=== PATIENT | male | born 1990 | race American Indian/Alaskan Native ===

== ENCOUNTER 2018-06-17 04:58 | Emergency (ER) | payer BC ==
[2018-06-17 05:14] VITALS: BP 146/96
--- NOTE | 2018-06-17 05:39 | XRay Report ---
PROCEDURE: XR CHEST 1V AP TECHNIQUE: A single AP view the chest was obtained. HISTORY: Chest Pain COMPARISONS: None FINDINGS: The lungs are clear. Heart size is normal. Pleural fluid is not seen. The bones and soft tissues appe ar normal. IMPRESSION: Within normal limits.. This document is electronically signed by Quique Ledezma MD., June 17 2018 05:37:34 AM ET
--- NOTE | 2018-06-17 08:32 | Emergency Department Report ---
ED Abdominal Pain HPI - General Chief Complaint: Chest Pain Stated Complaint: CHEST PAIN Time Seen by Provider: 06/17/18 07:53 Source: patient Mode of arrival: Ambulatory Limitations: No Limitations - History of Present Illness Initial Comments: Patient is a 27-year-old healthy looking male who presents to ED complaining of epigastric pain for the past 2 weeks. Patient is also complaining of trunk pain for the past 3 weeks. Patient states that he isn't trying to lose weight so he has decreased appetite and only eats about 1 minute day. Patient states he does stay hydrated. Patient states that he is been using this abdominal pelvic dissection shock waves to the trunk area. Patient states pain clinic, from that. Patient denies any fever, nausea, chest pain, vomiting, diarrhea, constipation, abdominal pain, dysuria, pain or discharge or pelvic pain MD Complaint: abdominal pain Severity scale (0 -10): 8 - Related Data Previous Rx's Medication Instructions Recorded Last Taken Type Azithromycin [Zithromax TAB] 250 mg PO QDAY #5 tablet 05/05/15 Unknown Rx Famotidine [Pepcid] 20 mg PO BID #30 tablet 06/17/18 Unknown Rx Allergies Allergy/AdvReac Type Severity Reaction Status Date / Time No Known Allergies Allergy Verified 06/17/18 05:14 ED Review of Systems ROS: Stated complaint: CHEST PAIN Other details as noted in HPI Comment: All other systems reviewed and negative ED Past Medical Hx - Past Medical History Previous Medical History?: No - Surgical History Past Surgical History?: No - Social History Smoking Status: Current Every Day Smoker Substance Use Type: None - Medications Home Medications: Home Medications Medication Instructions Recorded Confirmed Last Taken Type Azithromycin [Zithromax TAB] 250 mg PO QDAY #5 tablet 05/05/15 Unknown Rx Famotidine [Pepcid] 20 mg PO BID #30 tablet 06/17/18 Unknown Rx ED Physical Exam - General Limitations: No Limitations General appearance: alert, in no apparent distress - Head Head exam: Present: atraumatic, normocephalic - Eye Eye exam: Present: normal appearance - ENT ENT exam: Present: mucous membranes moist - Neck Neck exam: Present: normal inspection - Respiratory Respiratory exam: Present: normal lung sounds bilaterally. Absent: respiratory distress - Cardiovascular Cardiovascular Exam: Present: regular rate, normal rhythm. Absent: systolic murmur, diastolic murmur, rubs, gallop - GI/Abdominal GI/Abdominal exam: Present: soft, normal bowel sounds. Absent: distended, tenderness, organomegaly, mass, pulsatile mass - Rectal Rectal exam: Present: deferred - Extremities Exam Extremities exam: Present: normal inspection - Back Exam Back exam: Present: normal inspection, full ROM. Absent: tenderness, CVA tenderness (R), CVA tenderness (L) - Neurological Exam Neurological exam: Present: alert, oriented X3, normal gait - Psychiatric Psychiatric exam: Present: normal affect, normal mood - Skin Skin exam: Present: warm, dry, intact, normal color. Absent: rash ED Course Vital Signs 06/17/18 06/17/18 05:09 07:41 Temperature 98.0 F Pulse Rate 74 Respiratory 16 18 Rate Blood Pressure 146/96 O2 Sat by Pulse 98 99 Oximetry ED Medical Decision Making - Medical Decision Making 27-year-old male who presents with gastritis/abdominal muscle pain Discussed the patient is not eating because of gastritis. Discussed with him to make sure that he has enough meals 3 times per day. Discussed healthy ways to lose weight. Discussed follow-up with primary care physician. Scars follow up with the it administrative assistant. Discuss patient to stop using abdominal Belt Vital signs are normal patient is in no acute distress. Critical care attestation.: If time is entered above; I have spent that time in minutes in the direct care of this critically ill patient, excluding procedure time. ED Disposition Clinical Impression: Gastritis Disposition: DC-01 TO HOME OR SELFCARE Is pt being admited?: No Does the pt Need Aspirin: No Condition: Stable Instructions: Gastritis (ED), Trigger Point Pain (ED) Additional Instructions: Make sure to follow up with the primary care physician as discussed. Take all your medications as you've been prescribed. If you have any worsening symptoms or develop new symptoms please return to ED immediately. Prescriptions: Famotidine [Pepcid] 20 mg PO BID #30 tablet Referrals: CHASITY KERN MD [Primary Care Provider] - 3-5 Days [facility] [Provider Group] - 3-5 Days [facility] [Provider Group] - 3-5 Days Forms: Work/School Release Form(ED) Time of Disposition: 08:36
== END 2018-06-17 08:48 | disposition home or self-care (01) ==
LOC: ED 04:58
DX: K29.70 Gastritis, unspecified, without bleeding (principal); F17.200 Nicotine dependence, unspecified, uncomplicated
CPT/HCPCS: 71045; 93005; 93010; 99283

== ENCOUNTER 2018-10-18 06:33 | Emergency (ER) | payer BC ==
--- NOTE | 2018-10-18 07:43 | Emergency Department Report ---
ED Male HPI - General Chief complaint: Urogenital-Male Stated complaint: GROIN WORK INJURY Time Seen by Provider: 10/18/18 07:08 Source: patient Mode of arrival: Ambulatory Limitations: No Limitations - History of Present Illness Initial comments: Patient is a 28-year-old male presents emergency room with penile discharge and a possible STD. Patient states he does not have a work-related injury to said that is embarrassed to tell the female staff in triage the real reason. Patient states he is having some mild dysuria at times. Patient denies fever and chills. Patient denies testicular pain. Patient denies any groin pain. Patient denies abdominal pain. Patient denies fever and chills. Patient states he's having a mild cloudy penile discharge.. Patient denies rash. MD Complaint: penile discharge -: Sudden Location: penis Radiation: none Severity: moderate Consistency: constant Improves with: rest Worsens with: urination new sexual partner discharge, dysuria. denies: swelling, mass, rash, urinary retention, blood in urine, fever, nausea/vomiting, incontinence - Related Data Sexually active: Yes Previous Rx's Medication Instructions Recorded Last Taken Type Famotidine [Pepcid] 20 mg PO BID #30 tablet 06/17/18 Unknown Rx Azithromycin [Zithromax TAB] 500 mg PO QDAY #4 tablet 10/18/18 Unknown Rx Allergies Allergy/AdvReac Type Severity Reaction Status Date / Time No Known Allergies Allergy Verified 06/17/18 05:14 ED Review of Systems ROS: Stated complaint: GROIN WORK INJURY Other details as noted in HPI Constitutional: denies: chills, fever Eyes: denies: eye pain, eye discharge, vision change ENT: denies: ear pain, throat pain Respiratory: denies: cough, shortness of breath, wheezing Cardiovascular: denies: chest pain, palpitations Endocrine: no symptoms reported Gastrointestinal: denies: abdominal pain, nausea, diarrhea Genitourinary: dysuria, discharge. denies: urgency Musculoskeletal: denies: back pain, joint swelling, arthralgia Skin: denies: rash, lesions Neurological: denies: headache, weakness, paresthesias Psychiatric: denies: anxiety, depression Hematological/Lymphatic: denies: easy bleeding, easy bruising ED Past Medical Hx - Past Medical History Previous Medical History?: No - Surgical History Past Surgical History?: No - Family History Family history: no significant - Social History Smoking Status: Never Smoker Substance Use Type: None - Medications Home Medications: Home Medications Medication Instructions Recorded Confirmed Last Taken Type Famotidine [Pepcid] 20 mg PO BID #30 tablet 06/17/18 Unknown Rx Azithromycin [Zithromax TAB] 500 mg PO QDAY #4 tablet 10/18/18 Unknown Rx ED Physical Exam - General Limitations: No Limitations General appearance: alert, in no apparent distress - Head Head exam: Present: atraumatic, normocephalic - Eye Eye exam: Present: normal appearance - ENT ENT exam: Present: mucous membranes moist - Neck Neck exam: Present: normal inspection - Respiratory Respiratory exam: Present: normal lung sounds bilaterally. Absent: respiratory distress - Cardiovascular Cardiovascular Exam: Present: regular rate, normal rhythm. Absent: systolic murmur, diastolic murmur, rubs, gallop - GI/Abdominal GI/Abdominal exam: Present: soft, normal bowel sounds - Rectal Rectal exam: Present: deferred - exam: Present: urethral discharge (penile discharge noted and discharge is purulent), circumcision. Absent: testicular tenderness, scrotal swelling, vertical testicular lie External exam: Present: normal external exam. Absent: lesions - Extremities Exam Extremities exam: Present: normal inspection - Back Exam Back exam: Present: normal inspection - Neurological Exam Neurological exam: Present: alert, oriented X3 - Psychiatric Psychiatric exam: Present: normal affect, normal mood - Skin Skin exam: Present: warm, dry, intact, normal color. Absent: rash ED Course Vital Signs 10/18/18 06:40 Temperature 98.6 F Pulse Rate 105 H Respiratory 18 Rate Blood Pressure 153/102 O2 Sat by Pulse 100 Oximetry - Reevaluation(s) Reevaluation #1: I discussed all results with patient. Patient is stable for discharge. Patient was discharged home. Patient given plan of care. Patient agrees with plan of care. Patient advised to follow-up with health Department or primary care for further testing. Patient advised to make partners aware and practice safe sex Patient given discharge instructions. Patient voices understanding of all instructions. 10/18/18 08:58 Critical care attestation.: If time is entered above; I have spent that time in minutes in the direct care of this critically ill patient, excluding procedure time. ED Disposition Clinical Impression: Penile discharge, Dysuria, Possible exposure to STD Disposition: DC-01 TO HOME OR SELFCARE Is pt being admited?: No Does the pt Need Aspirin: No Condition: Stable Instructions: Chlamydia Infection (ED), Sexually Transmitted Diseases (ED), Safe Sex (ED) Additional Instructions: Patient about her primary care in 2-3 days. Patient to practice safe sex. Patient to return to ER if condition worsens. Patient to take meds as directed. Patient increase water. Patient to avoid sex until advised by primary care. Patient to increase water. Patient to follow-up with primary care for further evaluation and STD screening Prescriptions: Azithromycin [Zithromax TAB] 500 mg PO QDAY #4 tablet Referrals: PRIMARY CARE,MD [Primary Care Provider] - 2-3 Days FELI CARLSON MD [Staff Physician] - 2-3 Days Time of Disposition: 09:19
[2018-10-18 08:56] LABS: Bilirubin,Urine NEG (Negative); Blood,Urine SM (Negative); Color,Urine Yellow (Yellow); Mucus,Urine FEW /HPF; Protein,Urine <15 mg/dL mg/dL (Negative); Urobilinogen,Urine < 2.0 mg/dL (<2.0)
[2018-10-18] MEDS ORDERED: XYLOCAINE 1% MPF 5 mL INFILTRATI ONE (08:57)
[2018-10-18] MEDS ORDERED: ROCEPHIN IM ONE (08:57)
[2018-10-18 09:01] LABS: WBC,Urine > 182.0 /HPF (0.0-6.0)
[2018-10-18 09:26] VITALS: BP 150/100
== END 2018-10-18 09:25 | disposition home or self-care (01) ==
LOC: ED 06:33
DX: R36.9 Urethral discharge, unspecified (principal); R30.0 Dysuria; Z79.899 Other long term (current) drug therapy
CPT/HCPCS: 81001; 87591; 96372; 99283; J0696

== ENCOUNTER 2019-05-16 18:56 | Emergency (ER) | payer BC ==
[2019-05-16 19:09] VITALS: BP 148/101
--- NOTE | 2019-05-16 19:11 | Emergency Department Report ---
Blank Doc - Documentation Documentation: 28-year-old male that presents with chest pain and heart palpation. This initial assessment/diagnostic orders/clinical plan/treatment(s) is/are subject to change based on patient's health status, clinical progression and re- assessment by fellow clinical providers in the ED. Further treatment and workup at subsequent clinical providers discretion. Patient/guardians urged not to elope from the ED as their condition may be serious if not clinically assessed and managed. Initial orders include: 1- Patient sent to [facility] for further evaluation and treatment 2- EKG 3- CXR
--- NOTE | 2019-05-16 19:54 | XRay Report ---
CHEST 1 VIEW INDICATION / CLINICAL INFORMATION: cp. COMPARISON: 06/17/2018 chest radiograph FINDINGS: SUPPORT DEVICES: None. HEART / MEDIASTINUM: No significant abnormality. LUNGS / PLEURA: No significant pulmonary or pleural abnormality. No pneumothorax. IMPRESSION: No acute finding. No significant change. Signer Name: Mele Brush MD Signed: 05/16/2019 7:49 PM Workstation Name: [id number]
--- NOTE | 2019-05-16 20:46 | Emergency Department Report ---
ED Chest Pain HPI - General Chief Complaint: Chest Pain Stated Complaint: CP Time Seen by Provider: 05/16/19 19:10 Source: patient Mode of arrival: Ambulatory Limitations: No Limitations - History of Present Illness Initial Comments: Mt is a healthy 28-year-old male without significant past medical history who has had chest pain off and on for the past year. Sudden onset of sharp substernal epigastric pain with heart racing which began at work. Denies cough. No shortness of breath. Pain is now 6 out of 10. Improved after walking outside and resting. Has had a previous ED visit for similar symptoms. MD Complaint: chest pain -: Sudden, This evening Onset: during rest Pain Location: substernal Severity: moderate Severity scale (0 -10): 6 Quality: sharp, dull Consistency: constant Improves With: nothing Worsens With: nothing re: other (Palpitations) - Related Data Previous Rx's Medication Instructions Recorded Last Taken Type Famotidine [Pepcid] 20 mg PO BID #30 tablet 06/17/18 Unknown Rx Azithromycin [Zithromax TAB] 500 mg PO QDAY #4 tablet 10/18/18 Unknown Rx Allergies Allergy/AdvReac Type Severity Reaction Status Date / Time No Known Allergies Allergy Verified 06/17/18 05:14 Heart Score - HEART Score History: Slightly suspicious EKG: Non-specific Age: < 45 Risk factors: No known risk factors Troponin: < normal limit HEART Score: 1 ED Review of Systems ROS: Stated complaint: CP Other details as noted in HPI Comment: All other systems reviewed and negative Constitutional: denies: fever, malaise Respiratory: denies: cough, shortness of breath Cardiovascular: chest pain, palpitations ED Past Medical Hx - Past Medical History Previous Medical History?: No - Surgical History Past Surgical History?: No - Family History Family history: hypertension - Social History Smoking Status: Never Smoker Substance Use Type: None - Medications Home Medications: Home Medications Medication Instructions Recorded Confirmed Last Taken Type Famotidine [Pepcid] 20 mg PO BID #30 tablet 06/17/18 Unknown Rx Azithromycin [Zithromax TAB] 500 mg PO QDAY #4 tablet 10/18/18 Unknown Rx ED Physical Exam - General Limitations: No Limitations General appearance: alert, in no apparent distress - Head Head exam: Present: atraumatic, normocephalic - Eye Eye exam: Present: normal appearance - ENT ENT exam: Present: mucous membranes moist - Neck Neck exam: Present: normal inspection, full ROM - Respiratory Respiratory exam: Present: normal lung sounds bilaterally. Absent: respiratory distress, wheezes, rales, rhonchi - Cardiovascular Cardiovascular Exam: Present: regular rate, normal rhythm, normal heart sounds. Absent: systolic murmur, diastolic murmur, rubs, gallop - GI/Abdominal GI/Abdominal exam: Present: soft, normal bowel sounds. Absent: distended, tenderness, guarding, rebound - Rectal Rectal exam: Present: deferred - Extremities Exam Extremities exam: Present: normal inspection - Neurological Exam Neurological exam: Present: alert, oriented X3 - Psychiatric Psychiatric exam: Present: normal affect, normal mood - Skin Skin exam: Present: warm, dry, intact, normal color. Absent: rash ED Course Vital Signs 05/16/19 19:04 Temperature 98.1 F Pulse Rate 116 H Respiratory 20 Rate Blood Pressure 148/101 O2 Sat by Pulse 99 Oximetry ED Medical Decision Making - Lab Data Result diagrams: 05/16/19 21:05 05/16/19 21:05 Laboratory Results - last 24 hr 05/16/19 05/16/19 05/16/19 21:05 21:05 21:05 WBC 10.1 RBC 5.41 H Hgb 15.6 H Hct 47.3 H MCV 88 MCH 29 MCHC 34 RDW 14.0 Plt Count 222 Lymph % (Auto) 27.5 Sevier % (Auto) 9.7 H Eos % (Auto) 0.8 Baso % (Auto) 0.3 Lymph # 2.8 Sevier # 1.0 H Eos # 0.1 Baso # 0.0 Seg Neutrophils % 61.7 Seg Neutrophils # 6.2 D-Dimer 135.00 Sodium 141 Potassium 4.3 Chloride 104.1 Carbon Dioxide 24 Anion Gap 17 BUN 18 Creatinine 0.9 Estimated GFR > 60 BUN/Creatinine Ratio 20 Glucose 107 H Calcium 10.0 Total Bilirubin 0.20 ALT 77 H Alkaline Phosphatase 78 Troponin T < 0.010 Total Protein 7.9 Albumin 4.7 Albumin/Globulin Ratio 1.5 - EKG Data 05/16/19 20:45 EKG obtained at 1905 Sinus tachycardia rate 110 bpm normal axis normal intervals no ST elevation nonspecific T wave abnormalities no signs of heart strain no signs of pericarditis - Radiology Data Radiology results: report reviewed, image reviewed Chest radiograph PA lateral 2 views no acute findings according to radiology report and my personal review and interpretation - Medical Decision Making This is a 28-year-old male who presents with chest pain without indication of pulmonary embolism negative d-dimer, no signs of pericarditis on EKG, chest x- ray negative for pneumonia and pneumothorax. Strongly recommended evaluation by primary care physician for further treatment and evaluation. Recommended ibuprofen as necessary. Also noted elevated transaminases. I did take alcohol history. Recommended alcohol cessation until seen by a physician. Critical care attestation.: If time is entered above; I have spent that time in minutes in the direct care of this critically ill patient, excluding procedure time. ED Disposition Clinical Impression: Chest pain, Elevated liver enzymes Disposition: - TO HOME OR SELFCARE Is pt being admited?: No Does the pt Need Aspirin: No Condition: Stable Instructions: Chest Pain (ED) Additional Instructions: Your liver numbers are above average. Please stop drinking alcohol until you are evaluated for hepatitis. Referrals: BERTHA TILLMAN MD [Staff Physician] - 3-5 Days Forms: Work/School Release Form(ED)
[2019-05-16 21:19] LABS: Basophils % (Auto) 0.3 % (0.0-1.8); Eosinophils # (Auto) 0.1 K/mm3 (0.0-0.4); Eosinophils % (Auto) 0.8 % (0.0-4.3); Hemoglobin 15.6 gm/dl (11.8-15.2); Lymphocytes # (Auto) 2.8 K/mm3 (1.2-5.4); Lymphocytes % (Auto) 27.5 % (13.4-35.0); Monocytes % (Auto) 9.7 % (0.0-7.3)
[2019-05-16 21:28] LABS: Hematocrit 47.3 % (35.5-45.6); Mean Corpuscular HGB Conc 34 % (32-34); Mean Corpuscular Volume 88 fl (84-94); Platelet Count 222 K/mm3 (140-440); Red Blood Count 5.41 M/mm3 (3.65-5.03)
[2019-05-16 22:27] LABS: Alanine Aminotransferase 77 units/L (7-56); Albumin 4.7 g/dL (3.9-5); BUN/Creatinine Ratio 20; Blood Urea Nitrogen 18 mg/dL (9-20); Hemolysis Index 46
== END 2019-05-17 07:44 | disposition left against medical advice (07) ==
LOC: ED 18:56
DX: R07.2 Precordial pain (principal); R94.5 Abnormal results of liver function studies
CPT/HCPCS: 36415; 71046; 80053; 84484; 85025; 85379; 93005; 93010

== ENCOUNTER 2019-11-29 04:06 | Emergency (ER) | payer BC ==
[2019-11-29 04:30] VITALS: BP 150/103
--- NOTE | 2019-11-29 04:57 | Emergency Department Report ---
ED General Adult HPI - General Chief complaint: Skin/Abscess/Foreign Body Stated complaint: ANAL ABSCESS Source: patient Mode of arrival: Ambulatory Limitations: No Limitations - History of Present Illness Initial comments: Patient is a 29-year-old -[place]aysian male with no past medical history who presents to the ED with complaint of acute onset rectal pain due to hemorrhoids for the last 24 hours. Patient states that the pain has worsened in the last 6 hours. Patient denies rectal bleeding, abdominal pain, nausea, vomiting, testicular pain, dizziness, fever, chills, cough, diarrhea, low back pain, dizziness, lightheadedness or hematuria. MD Complaint: Rectal pain due to hemorrhoids -: Sudden, hour(s) (24) Location: buttocks (rectal area) Radiation: non-radiation Severity scale (0 -10): 5 Quality: aching, sharp Consistency: constant Improves with: none Worsens with: other (Bowel movement; walking) Associated Symptoms: denies other symptoms. denies: confusion, chest pain, cough, diaphoresis, fever/chills, headaches, loss of appetite, malaise, nausea/vomiting, rash, seizure, syncope, weakness Treatments Prior to Arrival: none - Related Data Previous Rx's Medication Instructions Recorded Last Taken Type Famotidine [Pepcid] 20 mg PO BID #30 tablet 06/17/18 Unknown Rx Azithromycin [Zithromax TAB] 500 mg PO QDAY #4 tablet 10/18/18 Unknown Rx Dibucaine 1% [Nupercainal] 1 applicatio NC TID PRN #1 tube 11/29/19 Unknown Rx Docusate Sodium [Colace CAP] 100 mg PO BID PRN #60 capsule 11/29/19 Unknown Rx Hydrocortisone [Anusol-Hc 2.5% TOP 1 applic RC Q12H PRN #1 tube 11/29/19 Unknown Rx CREAM] Naproxen 500 mg PO Q12H PRN #30 tablet 11/29/19 Unknown Rx Allergies Allergy/AdvReac Type Severity Reaction Status Date / Time No Known Allergies Allergy Verified 06/17/18 05:14 ED Review of Systems ROS: Stated complaint: ANAL ABSCESS Other details as noted in HPI Constitutional: denies: chills, fever Eyes: denies: eye pain, eye discharge, vision change ENT: denies: ear pain, throat pain Respiratory: denies: cough, shortness of breath, wheezing Cardiovascular: denies: chest pain, palpitations Endocrine: no symptoms reported Gastrointestinal: other (rectal pain). denies: abdominal pain, nausea, diarrhea Genitourinary: denies: urgency, dysuria Musculoskeletal: denies: back pain, joint swelling, arthralgia Skin: denies: rash, lesions Neurological: denies: headache, weakness, paresthesias Psychiatric: denies: anxiety, depression Hematological/Lymphatic: denies: easy bleeding, easy bruising ED Past Medical Hx - Past Medical History Previous Medical History?: No - Surgical History Past Surgical History?: No - Social History Smoking Status: Never Smoker Substance Use Type: Marijuana - Medications Home Medications: Home Medications Medication Instructions Recorded Confirmed Last Taken Type Famotidine [Pepcid] 20 mg PO BID #30 tablet 06/17/18 Unknown Rx Azithromycin [Zithromax TAB] 500 mg PO QDAY #4 tablet 10/18/18 Unknown Rx Dibucaine 1% [Nupercainal] 1 applicatio NC TID PRN #1 tube 11/29/19 Unknown Rx Docusate Sodium [Colace CAP] 100 mg PO BID PRN #60 capsule 11/29/19 Unknown Rx Hydrocortisone [Anusol-Hc 2.5% TOP 1 applic RC Q12H PRN #1 tube 11/29/19 Unknown Rx CREAM] Naproxen 500 mg PO Q12H PRN #30 tablet 11/29/19 Unknown Rx ED Physical Exam - General Limitations: No Limitations General appearance: alert, in no apparent distress - Head Head exam: Present: atraumatic, normocephalic, normal inspection - Eye Eye exam: Present: normal appearance, PERRL, EOMI Pupils: Present: normal accommodation - ENT ENT exam: Present: normal exam, normal orophraynx, mucous membranes moist, TM's normal bilaterally, normal external ear exam - Neck Neck exam: Present: normal inspection, full ROM - Respiratory Respiratory exam: Present: normal lung sounds bilaterally. Absent: respiratory distress, wheezes, rales, chest wall tenderness, accessory muscle use, decreased breath sounds, prolonged expiratory - Cardiovascular Cardiovascular Exam: Present: regular rate, normal rhythm, normal heart sounds. Absent: systolic murmur, diastolic murmur, rubs, gallop - GI/Abdominal GI/Abdominal exam: Present: soft, normal bowel sounds. Absent: tenderness, guarding, rebound, hyperactive bowel sounds, organomegaly, mass, bruit, pulsatile mass - Rectal Rectal exam: Present: hemorrhoids (external tender), tenderness (rectal), other - Extremities Exam Extremities exam: Present: normal inspection, full ROM, normal capillary refill - Back Exam Back exam: Present: normal inspection, full ROM. Absent: tenderness, CVA tenderness (R), CVA tenderness (L), muscle spasm, paraspinal tenderness, vertebral tenderness - Neurological Exam Neurological exam: Present: alert, oriented X3, CN II-XII intact, normal gait, reflexes normal - Psychiatric Psychiatric exam: Present: normal affect, normal mood - Skin Skin exam: Present: warm, dry, intact, normal color. Absent: rash ED Course Vital Signs 11/29/19 04:24 Temperature 98.3 F Pulse Rate 101 H Respiratory 18 Rate Blood Pressure 150/103 O2 Sat by Pulse 97 Oximetry ED Medical Decision Making - Medical Decision Making This is a 29-year-old -[place] male with no past medical history who presents to the ED with complaint of acute onset rectal pain due to hemorrhoids for the last 24 hours. Patient states that the pain has worsened in the last 6 hours. In the ED, patient is alert and oriented x3 and is not in distress. Based on the physical exam findings, patient was discharged home on pain medications and stool softeners and was advised to follow-up with his primary care physician in 5 to 7 days for reevaluation. Patient was also encouraged to increase high-fiber in his diet to help control recurrent constipation leading to persistent recurrent external hemorrhoids. Patient was otherwise advised to return to the ED immediately if symptoms get worse. - Differential Diagnosis External hemorrhoids; rectal abscess; constipation; internal hemorrhoids Critical care attestation.: If time is entered above; I have spent that time in minutes in the direct care of this critically ill patient, excluding procedure time. ED Disposition Clinical Impression: External hemorrhoids without complication, Anal or rectal pain Disposition: TO HOME OR SELFCARE Is pt being admited?: No Does the pt Need Aspirin: No Condition: Stable Instructions: Hemorrhoids (ED) Additional Instructions: Take medication as advised, follow-up with your primary care physician in 5 to 7 days for reevaluation. Eat high-fiber diet to improve on constipation issues. Return to the ED immediately if symptoms get worse. Prescriptions: Hydrocortisone [Anusol-Hc 2.5% TOP CREAM] 1 applic RC Q12H PRN #1 tube PRN Reason: Pain , Severe (7-10) Docusate Sodium [Colace CAP] 100 mg PO BID PRN #60 capsule PRN Reason: Constipation Naproxen 500 mg PO Q12H PRN #30 tablet PRN Reason: Pain , Severe (7-10) Dibucaine 1% [Nupercainal] 1 applicatio NC TID PRN #1 tube PRN Reason: rectal pain Referrals: [facility] [Provider Group] - 3-5 Days Time of Disposition: 04:54 Print Language: INDONESIAN
== END 2019-11-29 05:09 | disposition home or self-care (01) ==
LOC: ED 04:06
DX: K62.89 Other specified diseases of anus and rectum (principal); K64.4 Residual hemorrhoidal skin tags; F12.90 Cannabis use, unspecified, uncomplicated; Z79.899 Other long term (current) drug therapy
CPT/HCPCS: 99282